=== PATIENT | male | born 1990 | race Caucasian/White ===

== ENCOUNTER 2017-03-20 05:35 | Emergency (ER) | payer SELFPAY ==
[~2017-03-20] VITALS: Ht 175.3 cm; Wt 60.4 kg
[~2017-03-20 05:35] MED LIST: CIPRO HC OTIC S10 ML RIGHT EAR; DOXYCYCLINE HY100 M3 PO; FLEXERIL10 MG PO; HYDROCODON-ACE1 EAC7 PO; MOTRIN600 MG PO; NAPROSYN500 MG PO; NOHOMEMEDS; PEN-VEE K,VEET500 MG PO; TYLENOL/CODE1 TABLET PO; ULTRAM50 MG PO
[2017-03-20 05:50] VITALS: BP 152/93
== END 2017-03-20 08:22 | disposition home or self-care (01) ==
LOC: EME 05:35
DX: S60.221A Contusion of right hand, initial encounter (principal); W22.8XXA Striking against or struck by other objects, initial encounter
CPT/HCPCS: 73110; 73130; 99281; 99282

== ENCOUNTER 2018-04-03 08:33 | Emergency (ER) | payer SELFPAY ==
[~2018-04-03] VITALS: Ht 172.7 cm; Wt 61.2 kg
[2018-04-03 08:37] VITALS: BP 140/88
[2018-04-03] MEDS ORDERED: PEN-VEE K,VEET500 MG PO (09:09)
[2018-04-03] MEDS ORDERED: NAPROSYN500 MG PO (09:09)
[2018-04-03] MEDS ORDERED: PERIDEX473 ML MM (09:09)
== END 2018-04-03 09:59 | disposition home or self-care (01) ==
LOC: EME 08:33
DX: K04.7 Periapical abscess without sinus (principal); F17.200 Nicotine dependence, unspecified, uncomplicated; K03.81 Cracked tooth
CPT/HCPCS: 99281; 99284